=== PATIENT | female | born 1995 | race Caucasian/White ===

== ENCOUNTER 2018-09-02 15:53 | Day surgery (SDC) | payer BC, OTHER ==
[2018-09-02 16:36] VITALS: BP 113/69; TEMP 99.2; BMI 21.2
--- NOTE | 2018-09-02 17:07 | PDOC.LDHP ---
Labor and Delivery H&P Chief complaint: loss of fluid HPI: 23 y/o G1 at 20w0d, patient of Sayra Shaver, presents with leaking cloudy/white fluid. She was recently tested for GC/CT and VP3 which were both negative. Denies VB, ctx, or other complaints. ROS neg for HEENT, cv, pulm, gi, gu, neuro, psych, musculoskeletal or constitutional symptoms other than mentioned above. OB History Details: First Current complications: none Past Medical History: None Current medications: pre- vitamins, other (bongesta) Previous surgical history: other (tonsillectomy) Allergies/Adverse Reactions: Allergies Allergy/AdvReac Type Severity Reaction Status Date / Time lorazepam [From Ativan] Allergy Verified 09/02/18 16:37 Social history: none - Physical Exam Vital signs reviewed and normal: yes General: NAD, resting Lungs: nonlabored breathing Abdomen: gravid Extremeties: no edema - Vaginal Exam cm dilated: 0 (SSE neg for pooling, valsalva) - OB Labs Additional Labs: Amnisure negative - Assessment 23 y/o G1 at 20w0d with no e/o PROM. FHR 150s. VP3 pending. - Plan -: D/c home with precautions. Advised to keep all appointments. Will call if VP3 results indicate need for treatment.
[2018-09-02 17:26] LABS: Amnisure Internal Control QC ACCEPTABLE (ACCEPTABLE); Amnisure Test No Membranes Rupture (No Rupture)
== END 2018-09-02 18:00 | disposition home or self-care (01) ==
LOC: L&D/OP 15:53
PROVIDERS: ATTEND Advanced Practice Midwife
DX: O99.89 Other specified diseases and conditions complicating pregnancy, childbirth and the puerperium (principal); N89.8 Other specified noninflammatory disorders of vagina; Z79.899 Other long term (current) drug therapy; Z88.8 Allergy status to other drugs, medicaments and biological substances; Z3A.20 20 weeks gestation of pregnancy
CPT/HCPCS: 84112; 87480; 87510; 87660; 99284

== ENCOUNTER 2018-10-18 12:57 | Day surgery (SDC) | payer BC, OTHER ==
[2018-10-18 13:16] VITALS: BMI 23.0
--- NOTE | 2018-10-18 16:01 | PRG ---
DATE OF SERVICE: 10/18/2018 TIME OF SERVICE: 1500 hours. PRESENTING COMPLAINT: 26 weeks gestation, was pulled along by Mastiff dog. HISTORY OF PRESENT ILLNESS: The patient is a 23-year-old primigravida with an EDC of 01/20. She sees Shruthi Shaver at [facility]. She reports that she used to walk with her dog, and her dog took off running in another direction and pulled her along the ground faraway. She denies significant abdominal trauma other than being drug along on the grass. She reports active fetus. She denies bleeding. 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 The patient is A positive, antibody negative. Pap, negative. Rubella immune. VDRL, nonreactive. Hepatitis B, GC, and chlamydia are negative. MEDICAL HISTORY: Denies. SURGICAL HISTORY: Denies. ALLERGIES: DENIES. MEDICATIONS: vitamins. SOCIAL HISTORY: Denies tobacco, alcohol, or drug abuse. FAMILY HISTORY: Noncontributory. REVIEW OF SYSTEMS: Noncontributory. PHYSICAL EXAMINATION: GENERAL: White female, resting comfortably, in no acute distress. VITAL SIGNS: Temperature 98.4, pulse 85, respirations 18, blood pressure 112/72. HEENT: Within normal limits. LUNGS: Clear to auscultation bilaterally. HEART: Regular rate and rhythm. ABDOMEN: Soft and nontender without palpable contractions. There is a small abrasion noted above the umbilicus without other abnormality noted. PELVIC: Deferred. EXTREMITIES: Without clubbing, cyanosis, or edema. heart rate monitoring is carried out for 3 hours, which revealed reactive heart rate tracing. Positive accelerations. No decelerations. No contractions noted. IMPRESSION: The patient is 26 weeks gestation, status post being drug along by a large dog. No evidence of significant abdominal trauma. No evidence worrisome for placental abruption. The patient is Rh positive. PLAN: Discharge home. ER precautions. Keep scheduled followup with Shruthi Shaver at [facility]. Job ID: [id number]
== END 2018-10-18 15:21 | disposition home or self-care (01) ==
LOC: L&D/OP 12:57
PROVIDERS: ATTEND Obstetrics & Gynecology
DX: Z04.3 Encounter for examination and observation following other accident (principal); Z3A.26 26 weeks gestation of pregnancy; Z79.899 Other long term (current) drug therapy; W54.8XXA Other contact with dog, initial encounter
CPT/HCPCS: 99283

== ENCOUNTER 2018-11-11 17:38 | Day surgery (SDC) | payer BC, OTHER ==
[2018-11-11] MEDS ORDERED: Ondansetron PF 4 MG/2 ML Vial ONE (18:16)
[2018-11-11] MEDS ORDERED: Acetaminophen 500 MG TAB ONE (18:16)
[2018-11-11 18:43] LABS: Bilirubin Small (Negative); Blood, Urine Negative (Negative); Clarity CLOUDY (Clear); Glucose, Urine (Dipstick) Negative (Negative); Leukocyte Small (Negative); Nitrite Negative (Negative); Protein, Urine (Dipstick) Trace mg/dL (Neg-Trace); Specific Gravity, Urine 1.025 (1.002-1.036); Urobilinogen 0.2 mg/dL (0.2-1.0)
[2018-11-11 18:44] LABS: #Eosinphils 0.1 thou/uL (0.0-0.7); #Lymphocytes 1.4 thou/uL (1.20-3.40); #Monocytes 0.9 thou/uL (0.11-0.59); %Basophils 0.1 % (0.0-1.0); %Eosinophils 0.5 % (0.0-10.0); %Lymphocytes 11.4 % (21.0-51.0); %Monocytes 7.1 % (0.0-10.0); %Neutrophils 80.9 % (42.0-75.0); Hemoglobin 10.9 g/dL (12.0-16.0); Mean Corpuscular HGB CONC 33.9 g/dL (32.0-36.0); Mean Corpuscular Hemoglobin 30.8 pg (27.0-31.0); Mean Corpuscular Volume 90.7 fL (78.0-98.0); Platelet Count 223 thou/uL (130-400); RBC Distribution Width 11.4 % (11.5-14.5); Red Blood Cell (RBC) Count 3.54 mill/uL (4.20-5.40); White Blood Cell (WBC) Count 12.3 thou/uL (4.8-10.8)
[2018-11-11 18:53] LABS: Bacteria/HPF 1+ HPF (None Seen); RBC/HPF 0-3 HPF (0-3)
[2018-11-11 18:54] LABS: Crystals/HPF RARE CA OXALATE HPF (Negative); Hyaline Casts/LPF 0-3 HYALINE CAST LPF (0-3 Hyaline)
[2018-11-11 19:09] LABS: ALT (SGPT) 12 U/L (8-55); AST (SGOT) 19 U/L (5-34); Albumin 3.3 g/dL (3.5-5.0); Alkaline Phosphatase 90 U/L (40-150); Anion Gap 14 mmol/L (10-20); BUN (Urea Nitrogen) 10 mg/dL (7.0-18.7); Bilirubin, Total 0.4 mg/dL (0.2-1.2); Calc. Creatinine Clearance 0 mL/min (70-130); Calcium 8.8 mg/dL (7.8-10.44); Carbon Dioxide 20 mmol/L (22-29); Chloride 104 mmol/L (98-107); Estimated GFR-MDRD Greater than 90; Globulin 2.6 g/dL (2.4-3.5); Glucose 73 mg/dL (70-105); Potassium 3.5 mmol/L (3.5-5.1); Protein, Total 5.9 g/dL (6.0-8.3); Sodium 134 mmol/L (136-145)
--- NOTE | 2018-11-11 21:55 | PDOC.LDHP ---
Labor and Delivery H&P Chief complaint: other (N/V x today, diarrhea x 3 days) HPI: Seen in ED for N/V first and had leabs there. Patient of dr parviz BELLO 30 weeks 0 days HPI: 23 yo G1 with N/V/diarrhea, no sick contacts. Low grade temp at home 100.1 No dusria No chills Given zofran in ED States was 100.4 at home last night Afebrile in ED and in L&D Review of Systems: complete ROS performed and negative as per HPI Current gestational age (weeks): 30 Due date: 01/20/19 Dating criteria: last menstrual period Grav: 1 Current complications: none Abnormal US findings: No Current medications: pre- vitamins Previous surgical history: other (T&A) Allergies/Adverse Reactions: Allergies Allergy/AdvReac Type Severity Reaction Status Date / Time lorazepam [From Ativan] Allergy Verified 10/18/18 13:06 - Physical Exam Vital signs reviewed and normal: yes (afebrile in L&D BP 95/57) - Assessment N/V at 30 weks, diarrhea. bactiuria on void UA in ED - Plan Plan: observation in L&D (I have sen the patient at bedside. No CVAT. I will: 1. get cervical length sono 2. collect VP3 3. NS hydration 4. Rocephin 1 gram IV and home on macrobid incase UTI 5. No CVAT at this time and no fever now As I suspect more gastroenteritis rather than pyelo, I will give IVFs and IV dose of rocephin and give po macrobid for oral RX x 7 days. CBC and CMP reviewed from the ED)
[2018-11-11] MEDS ORDERED: cefTRIAXone\\ROCEPHIN 1 GM in Sodium Chloride 0.9% 100 ML IVPB SCH (22:00)
[2018-11-11] MEDS ORDERED: Sodium Chloride 0.9% 1,000 ML IV SCH (22:00)
--- NOTE | 2018-11-11 22:52 | PDOC.EVN ---
Event Note - Event Note Event Note: CX by griselda >3cm..ok for outpatient care. Rocephin given IV...still afebrile here Home with macrobid
--- NOTE | 2018-11-11 23:16 | ULT ---
LIMITED OB ULTRASOUND: 11/11/18 INDICATIONS: Cervical length was requested. FINDINGS/IMPRESSION: Fetus is vertex. heart rate recorded at 128 beats per minute. There appears to be a fundal plac enta. Cervical length recorded at 3.46 cm. POS: [facility]
== END 2018-11-11 20:24 | disposition home or self-care (01) ==
LOC: L&D/OP 17:38 → ERS 17:38 → EDSTATUS 21:11
PROVIDERS: ATTEND Emergency Medicine
DX: O21.2 Late vomiting of pregnancy (principal); O26.893 Other specified pregnancy related conditions, third trimester; R19.7 Diarrhea, unspecified; R82.71 Bacteriuria; O99.343 Other mental disorders complicating pregnancy, third trimester; F41.9 Anxiety disorder, unspecified; F32.9 Major depressive disorder, single episode, unspecified; Z88.8 Allergy status to other drugs, medicaments and biological substances; Z3A.30 30 weeks gestation of pregnancy
CPT/HCPCS: 36415; 76815; 80053; 81003; 81015; 82010; 85025; 87480; 87510; 87660; 96361; 96374; J0696; J2405; J3490

== ENCOUNTER 2018-12-14 17:56 | Emergency (ER) | payer BC, OTHER | END 2018-12-14 19:10 | disposition home or self-care (01) | LOC: ERS 17:56 | DX: O99.89 Other specified diseases and conditions complicating pregnancy, childbirth and the puerperium (principal); M54.5 Low back pain; M25.551 Pain in right hip; Z3A.34 34 weeks gestation of pregnancy | CPT/HCPCS: 99283 ==

== ENCOUNTER 2018-12-27 17:05 | Day surgery (SDC) | payer BC, OTHER ==
[2018-12-27 17:36] VITALS: BP 116/68; TEMP 98.4
[2018-12-27 17:45] VITALS: BMI 24.8
[2018-12-27] MEDS ORDERED: hydrALAZINE 20 MG/ML VIAL SLOW IVP PRN (18:31)
--- NOTE | 2018-12-27 19:02 | ER ---
DATE OF SERVICE: 12/27/2018 TIME OF SERVICE: 1830 hours. PRESENTING COMPLAINT: Contractions at 37 weeks gestation. HISTORY OF PRESENT ILLNESS: Ms. Bui is a primigravida with EDC of 01/20/2019, who sees Shruthi Shaver at [facility]. has been complicated by depression, UTI, and unexplained low alpha-fetoprotein. The patient is scheduled for an induction of labor at 38 to 39 weeks gestation on 01/06. She presents today complaining of contractions that were quite heavy at work; however, they have decreased and are irregular upon presentation. She reports an active fetus. She denies rupture of membranes, vaginal bleeding. 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 Blood type A positive, antibody negative. Pap negative. Rubella immune. VDRL nonreactive. Hepatitis B, GC, chlamydia negative. Group B strep culture negative. PAST MEDICAL HISTORY: Significant for depression. PAST SURGICAL HISTORY: Denies. ALLERGIES: DENIES. MEDICATIONS: vitamins. SOCIAL HISTORY: Denies tobacco, alcohol, or drug use. FAMILY HISTORY: Noncontributory. REVIEW OF SYSTEMS: Noncontributory. PHYSICAL EXAMINATION: GENERAL: White female, in no acute distress. VITAL SIGNS: Temperature 98.5 respirations 18, pulse 85, blood pressure 118/72. HEENT: Within normal limits. LUNGS: Clear to auscultation bilaterally. HEART: Regular rhythm. ABDOMEN: Soft and nontender. Fundal height 36 cm. FHTs 140s. Positive accelerations, no decelerations. Category 1 heart rate tracing. VULVA: Without lesions. VAGINA: Without discharge. CERVICAL: By RN, was closed, long and high posterior. EXTREMITIES: No clubbing, cyanosis, or edema. Prolonged monitoring is carried out, which revealed a category 1 heart rate tracing with contractions q.10 to 20 minutes. IMPRESSION: [place] contractions. No evidence of active labor. PLAN: Reassurance. Discharge home. The patient is keep scheduled followup with Shruthi Shaver at [facility] in 4 days. Job ID: [id number]
== END 2018-12-27 18:50 | disposition home or self-care (01) ==
LOC: L&D/OP 17:05
PROVIDERS: ATTEND Obstetrics & Gynecology
DX: O47.1 False labor at or after 37 completed weeks of gestation (principal); O99.343 Other mental disorders complicating pregnancy, third trimester; F32.9 Major depressive disorder, single episode, unspecified; Z3A.37 37 weeks gestation of pregnancy; Z79.899 Other long term (current) drug therapy
CPT/HCPCS: 99282

== ENCOUNTER 2019-01-06 15:09 | Inpatient (IN) | payer BC, OTHER ==
[~2019-01-06 15:09] MED LIST: Bupivacaine/Epinephrine 0.25% 30 ML VIAL ONE
[2019-01-06] MEDS ORDERED: Ondansetron PF 4 MG/2 ML Vial IVP PRN (20:04)
[2019-01-06] MEDS ORDERED: Promethazine HCl 25 MG/ML VIAL IM PRN (20:04)
[2019-01-06] MEDS ORDERED: Ibuprofen 800 MG TAB PO PRN (20:04)
[2019-01-06] MEDS ORDERED: Lidocaine 1% (PF) 30 ML VIAL SC PRN (20:04)
[2019-01-06] MEDS ORDERED: HYDROcodone/Acetaminophen 5/325 mg Tablet PO PRN ×2 (20:04)
[2019-01-06] MEDS ORDERED: hydrALAZINE 20 MG/ML VIAL SLOW IVP PRN (20:04)
[2019-01-07] MEDS: Lactated Ringer's 1,000 ML IV SCH ×4 (00:43→18:37)
[2019-01-07] MEDS: Misoprostol 100 MCG TAB PO SCH ×2 (00:44→05:27)
[2019-01-07 00:48] LABS: Hemoglobin 10.3 g/dL (12.0-16.0); Mean Corpuscular HGB CONC 34.6 g/dL (32.0-36.0); Mean Corpuscular Hemoglobin 28.9 pg (27.0-31.0); Mean Corpuscular Volume 83.4 fL (78.0-98.0); Mean Platelet Volume 7.4 fL (7.4-10.4); Platelet Count 304 thou/uL (130-400); RBC Distribution Width 12.3 % (11.5-14.5); Red Blood Cell (RBC) Count 3.56 mill/uL (4.20-5.40); White Blood Cell (WBC) Count 12.9 thou/uL (4.8-10.8)
[2019-01-07 00:56] VITALS: BMI 25.6
[2019-01-07 01:29] LABS: HBSAg Index 0.37 S/CO (0-0.99); Hep B Surf Ag Non-Reactive S/CO (NonReactive)
[2019-01-07] MEDS ORDERED: NS w/ Oxytocin 10 units 500 ML IV SCH (04:00)
[2019-01-07 04:31] LABS: Syphilis Antibody Nonreactive (Nonreactive); Syphilis Antibody Index 0.03 S/CO (<1.00 Non-Reactive)
--- NOTE | 2019-01-07 07:19 | PDOC.LDHP ---
Labor and Delivery H&P Chief complaint: other HPI: Erika Bui is a 23 y.o female e G1PO who present to L&D for medically indicated induction of labor Current gestational age (weeks): 38 Due date: 01/20/19 Dating criteria: last menstrual period (Verified with 1st trimester US) Grav: 1 Para: 0 Current complications: other (Elevated ms AFP, Low Risk NIPS, WNML level 2 anatomy ultrasound with MFM) Abnormal US findings: No Past Medical History: Depression and Anxiety Current medications: pre- vitamins Previous surgical history: other (Tonsillectomy) Allergies/Adverse Reactions: Allergies Allergy/AdvReac Type Severity Reaction Status Date / Time lorazepam [From Ativan] Allergy Verified 10/18/18 13:06 Social history: none - Physical Exam Vital signs reviewed and normal: yes General: NAD Heart: RRR Lungs: nonlabored breathing Abdomen: gravid Extremeties: trace edema FHT: category 1 [place] contractions every: irregular - Vaginal Exam cm dilated: 1 Effacement: 50% Station: -3 - OB Labs Blood type: A RH: positive Antibody Screen: negative HIV: negative RPR: negative HEPSAg: negative 1 hour GCT: negative GBS: negative Urine drug screen: negative Rubella: immune - Assessment L&D Assessment: medically indicated induction - Plan Plan: admit to L&D, cervical ripening, labor augmentation if indicated
[2019-01-07] MEDS ORDERED: Fentanyl 4 mcg/Bup 0.1% Cadd 100 ML ONE (17:26)
[2019-01-07] MEDS ORDERED: Lidocaine 1.5%/Epinephrine 1:200,000 5 ML AMPUL IJ ONE (17:59)
--- NOTE | 2019-01-07 18:31 | PDOC.LDPN ---
Labor & Delivery Progress Note - Subjective Subjective: painful contractions - Objective Vital signs reviewed and normal: yes General: breathing through contractions Uterine fundus: non tender Dilation: 6 Effacement: 90% Station: 0 FHT: category 1 [place] contractions every: q2-4 AROM: clear fluid - Assessment (1) Abnormal MSAFP (maternal serum alpha-fetoprotein), elevated Code(s): O28.0 - ABNORMAL HEMATOLOG FINDING ON SCREENING OF MOTHER Current Visit: Yes Status: Acute (2) 38 weeks gestation of Code(s): Z3A.38 - 38 WEEKS GESTATION OF Current Visit: Yes Status : Acute Plan: continue plan of care, other -: epidural for pain management
[2019-01-07] MEDS ORDERED: Promethazine HCl 25 MG/ML VIAL IM PRN (18:35)
[2019-01-07] MEDS ORDERED: ePHEDrine/0.9% NaCl/PF SYRINGE 50 mg/10 ml SLOW IVP PRN (18:35)
[2019-01-07] MEDS ORDERED: Lactated Ringer's 500 ML IV PRN (18:35)
[2019-01-07] MEDS ORDERED: Ondansetron PF 4 MG/2 ML Vial IVP PRN (18:35)
[2019-01-07] MEDS ORDERED: diphenhydrAMINE 50 MG/ML VIAL IVP PRN (18:35)
[2019-01-07] MEDS ORDERED: Acetaminophen 325 MG TAB PO PRN (18:35)
[2019-01-07] MEDS ORDERED: Naloxone HCl 0.4 mg/ml Vial IVP PRN ×2 (18:35)
[2019-01-07] MEDS ORDERED: Fentanyl 4 mcg/Bupivacaine 0.1% Cassette 100 ML EPIDURAL SCH (18:45)
[2019-01-07] MEDS ORDERED: Communication Order-Pharmacy FS SCH (18:45)
[2019-01-07] MEDS: NS / Oxytocin 40 units/1000ml 1,000 ML IV PRN ×2 (21:10→23:41)
--- NOTE | 2019-01-07 21:42 | PDOC.OPDEL ---
OB Operative/Delivery Note Delivery Dr/Surgeon: Aman Shaver CNM Pre-Delivery Diagnosis: active labor Procedure/Post Delivery Dx: spontaneous vaginal delivery Weeks gestation: 38 Anesthesia: epidural - Findings A Sex: male Weight: 6 lb 2 oz - 1 min: 8 - 5 min: 9 - Additional Findings/Plan Placenta delivered: spontaneous Repaired Obstetrical Laceration: 1st degree Estimated blood loss: 150mL EBL Compilations/Other Findings: Nuchal cord, decels to 60s with pushing Placenta to Pathology for elevated msAFP Post delivery plan: routine recovery
[2019-01-08] MEDS ORDERED: NS / Oxytocin 40 units/1000ml 1,000 ML IV SCH (01:00)
[2019-01-08] MEDS ORDERED: Milk Of Magnesia 30 ML UDCUP PO PRN (01:00)
[2019-01-08] MEDS ORDERED: Misoprostol 200 MCG TAB VAG PRN (01:00)
[2019-01-08] MEDS ORDERED: hydrALAZINE 20 MG/ML VIAL SLOW IVP PRN (01:00)
[2019-01-08] MEDS ORDERED: HYDROcodone/Acetaminophen 5/325 mg Tablet PO PRN (01:00)
[2019-01-08] MEDS ORDERED: Methylergonovine 0.2 MG/ML VIAL IM PRN (01:00)
[2019-01-08] MEDS ORDERED: Benzocaine-Menthol 82.5 ML CAN TOP PRN (01:00)
[2019-01-08] MEDS ORDERED: Bisacodyl 10 MG SUPP PR PRN (01:00)
[2019-01-08] MEDS: HYDROcodone/Acetaminophen 5/325 mg Tablet PO PRN ×2 (04:47→16:50)
[2019-01-08] MEDS: Ibuprofen 800 MG TAB PO SCH ×3 (04:48→16:50)
[2019-01-08] MEDS: Docusate Calcium (SURFAK) 240 MG CAP PO SCH ×2 (08:49→21:14)
[2019-01-08] MEDS ORDERED: Varicella virus, LIVE 0.5 ML VIAL SC ONE (09:00)
[2019-01-08] MEDS ORDERED: Measles/Mumps/Rubella 10 MCG/0.5 ML VIAL SC ONE (09:00)
[2019-01-08] MEDS ORDERED: Adacel (T-DAP) 0.5 ML SYRINGE IM ONE (09:00)
[2019-01-08] MEDS: Ferrous Sulfate 325 MG TAB PO SCH ×2 (09:02→17:15)
[2019-01-09] MEDS: Ibuprofen 800 MG TAB PO SCH ×3 (04:29→14:36)
--- NOTE | 2019-01-09 06:56 | PDOC.PP ---
Post Progress Note Post Day #: 1 PO intake tolerated: yes Flatus: yes Ambulation: yes Vital Signs (12 hours) Temp Pulse Resp BP Pulse Ox 01/09/19 00:00 97.9 F 78 18 109/70 01/08/19 20:00 98.3 F 86 18 116/63 98 Weight Weight 140 lb - Physical Examination General: NAD Cardiovascular: no m/r/g, RRR Respiratory: non-labored breathing Abdominal: lochia Fundus firm & at: deviated Extremities: negative homans (B) Skin: no rash Psychiatric: A&Ox3, normal affect Result Diagrams: 01/07/19 00:36 Additional Labs: Post Labs Blood Type A POSITIVE 01/07/19 01:55 Hep Bs Antigen Non-Reactive S/CO (NonReactive) 01/07/19 00:36 (1) Abnormal MSAFP (maternal serum alpha-fetoprotein), elevated Code(s): O28.0 - ABNORMAL HEMATOLOG FINDING ON SCREENING OF MOTHER Status: Acute (2) 38 weeks gestation of Code(s): Z3A.38 - 38 WEEKS GESTATION OF Status: Acute
[2019-01-09 08:41] VITALS: TEMP 98.8
[2019-01-09] MEDS: Docusate Calcium (SURFAK) 240 MG CAP PO SCH (09:33)
[2019-01-09] MEDS: Ferrous Sulfate 325 MG TAB PO SCH (09:35)
[2019-01-09] MEDS ORDERED: Lanolin Ointment 7 GM TUBE TOP PRN (12:42)
[2019-01-09 14:47] VITALS: BP 118/71
== END 2019-01-09 16:20 | disposition home or self-care (01) | DRG 807 ==
LOC: L&D 19:27 → 3SW 01-08 00:22
PROVIDERS: ADMIT Obstetrics & Gynecology; ATTEND Obstetrics & Gynecology
PROC: 10E0XZZ Delivery of Products of Conception, External Approach (ICD-10-PCS; principal; 2019-01-06)
PROC: 10907ZC Drainage of Amniotic Fluid, Therapeutic from Products of Conception, Via Natural or Artificial Opening (ICD-10-PCS; 2019-01-06)
PROC: 3E0P7VZ Introduction of Hormone into Female Reproductive, Via Natural or Artificial Opening (ICD-10-PCS; 2019-01-06)
PROC: 3E033VJ Introduction of Other Hormone into Peripheral Vein, Percutaneous Approach (ICD-10-PCS; 2019-01-06)
PROC: 0HQ9XZZ Repair Perineum Skin, External Approach (ICD-10-PCS; 2019-01-06)
DX: O69.81X0 Labor and delivery complicated by cord around neck, without compression, not applicable or unspecified (principal); Z37.0 Single live birth; O99.344 Other mental disorders complicating childbirth; F32.9 Major depressive disorder, single episode, unspecified; F41.9 Anxiety disorder, unspecified; O70.0 First degree perineal laceration during delivery; O28.0 Abnormal hematological finding on antenatal screening of mother; Z3A.38 38 weeks gestation of pregnancy
CPT/HCPCS: 36415; 51702; 85027; 86780; 86850; 86900; 86901; 87340; 90715; J2001; J3490